=== PATIENT | female | born 1945 | race Caucasian/White ===

== ENCOUNTER 2023-09-20 22:21 | Emergency (ER) | payer OTHER ==
[~2023-09-20] VITALS: Ht 160 cm; Wt 69.4 kg
[2023-09-20 22:35] VITALS: BP_SYST 149; PULSE 76; RESP 16; TEMP 97.9; O2SAT 97
[2023-09-20] MEDS ORDERED: DIPHTH,PERTUSS(ACELL),TET VAC 0.5 ML VIAL (Tdap) I.M. ONE (23:45)
[2023-09-21] MEDS ORDERED: ACET-2634 PO (01:21)
[2023-09-21] MEDS ORDERED: DIPHTH,PERTUSS(ACELL),TET VAC 0.5 ML VIAL (Tdap) I.M. ONE (01:49)
[2023-09-21 02:08] VITALS: BP_SYST 132; PULSE 84; RESP 18; O2SAT 97
== END 2023-09-21 02:09 | disposition home or self-care (01) ==
LOC: SED 22:21
DX: S61.011A Laceration without foreign body of right thumb without damage to nail, initial encounter (principal); S61.210A Laceration without foreign body of right index finger without damage to nail, initial encounter; I10 Essential (primary) hypertension; Z79.899 Other long term (current) drug therapy; W26.0XXA Contact with knife, initial encounter; Y93.89 Activity, other specified; Y92.89 Other specified places as the place of occurrence of the external cause; Y99.8 Other external cause status
CPT/HCPCS: 73140-TC; 90715; 99283